=== PATIENT | male | born 1965 | race African-American/Black ===

== ENCOUNTER 2024-11-27 12:22 | Inpatient (IN) | payer BC, MEDICAID, OTHER ==
[2024-11-27] MEDS: EPINEPHrine 1 MG/ML SDV ONE (13:08)
[2024-11-27] MEDS: methylPREDNISolone Sodium Succinate 125 MG/2 ML SDV IVPUSH ONE (13:08)
[2024-11-27] MEDS: diphenhydrAMINE 50 MG/ML SDV IVPUSH ONE (13:09)
[2024-11-27] MEDS: Famotidine 20 MG/2 ML SDV IVPUSH ONE (13:11)
[2024-11-27] MEDS: Sodium Chloride 0.9% 10 ML Syringe FLUSH ONE (13:21)
[2024-11-27] MEDS: Iopamidol 755 Mg/ML 100 ML Bottle IVPUSH ONE (13:21)
[2024-11-27] MEDS: EPINEPHrine 0.3 MG/0.3 ML Pen Autoinjector IM ONE (13:24)
[2024-11-27] MEDS: Sodium Chloride 0.9% 1,000 ML IV SCH (13:39)
[2024-11-27] MEDS: Piperacillin/Tazobactam 4.5 GM in Sodium Chloride 0.9% 100 ML IV ONE (14:28)
[2024-11-27 14:31] LABS: BASOPHILS PERCENT AUTO 0.2 % (0.0-1.0); EOSINOPHILS ABSOLUTE AUTO 0.1 K/mm3 (0.0-0.4); EOSINOPHILS PERCENT AUTO 1.1 % (0.0-6.0); HEMATOCRIT 42.1 % (42.0-52.0); IMMATURE GRAN ABSOLUTE AUTO 0.03 K/mm3 (0.00-0.05); IMMATURE GRAN PERCENT AUTO 0.3 % (0.0-0.4); LYMPHOCYTES ABSOLUTE AUTO 1.3 K/mm3 (1.0-4.8); LYMPHOCYTES PERCENT AUTO 12.8 % (24.0-44.0); MEAN CORPUSCULAR HGB CONC 33.3 g/dl (32.0-36.0); MEAN CORPUSCULAR VOLUME 90.3 fl (83.0-99.0); MEAN PLATELET VOLUME 12.5 fl (9.4-12.4); MONOCYTES ABSOLUTE AUTO 0.9 K/mm3 (0.0-0.8); MONOCYTES PERCENT AUTO 8.4 % (0.0-8.0); NEUTROPHILS ABSOLUTE AUTO 7.9 K/mm3 (1.8-7.7); NEUTROPHILS PERCENT AUTO 77.2 % (41.0-71.0); PLATELET COUNT,PLT 145 K/mm3 (150-400); RED BLOOD CELL COUNT 4.66 M/mm3 (4.52-5.90); WHITE BLOOD CELL COUNT,WBC 10.25 K/mm3 (3.9-11.3)
[2024-11-27] MEDS ORDERED: Sulfamethoxazole/Trimethoprim 800-160 MG Tab PO ONE (14:37)
[2024-11-27 14:40] LABS: A/G RATIO 0.8 (1-2); ALBUMIN 3.4 g/dl (3.4-5.0); ANION GAP 12.8 (5-15); BILIRUBIN TOTAL 0.7 mg/dL (0.2-1.0); BUN/CREATININE RATIO 8.2 (14-18); CALCIUM 9.1 mg/dL (8.5-10.1); CREATININE 1.1 mg/dL (0.7-1.3); EST CRCL DRUG DOSING (CG) 73.2 mL/min; POTASSIUM,K 3.8 mEq/L (3.5-5.1); PROTEIN TOTAL,TP 7.7 g/dl (6.4-8.2)
[2024-11-27] MEDS ORDERED: LORazepam 1 MG Tab PO PRN (16:45)
[2024-11-27] MEDS ORDERED: hydrALAZINE 20 MG/ML SDV IVPUSH PRN (16:56)
[2024-11-27] MEDS ORDERED: Labetalol 100 MG/20 ML MDV IVPUSH PRN (16:56)
[2024-11-27] MEDS ORDERED: Acetaminophen/HYDROcodone 325-5 MG Tab PO PRN (17:11)
[2024-11-27] MEDS ORDERED: Sennosides/Docusate Sodium 50-8.6 MG Tab PO PRN (17:11)
[2024-11-27] MEDS ORDERED: Ondansetron 4 MG Tab.DIS PO PRN (17:11)
[2024-11-27] MEDS: Ampicillin/Sulbactam Na 3 GM in Sodium Chloride 0.9% 100 ML IV SCH (17:39)
[2024-11-27] MEDS: Albuterol/Ipratropium 3.0-0.5 MG/3 ML Neb Soln NEB ONE (18:21)
[2024-11-27 18:43] LABS: BARBITURATE SCREEN,URINE NEGATIVE (CUTOFF=200); BENZODIAZEPINES SCREEN,URINE NEGATIVE (CUTOFF=150); BUPRENORPHINE SCREEN,URINE NEGATIVE (CUTOFF=10); METHADONE SCREEN, URINE NEGATIVE (CUT0FF=200); METHAMPHETAMINES SCREEN, URINE NEGATIVE (CUTOFF=500); OXYCODONE SCREEN,URINE NEGATIVE (CUT0FF=100); THC SCREEN,URINE 20 NG/ML NEGATIVE (CUTOFF=50)
[2024-11-27 18:47] LABS: AMPHETAMINES SCREEN, URINE NEGATIVE (CUTOFF=500)
[2024-11-28 05:38] LABS: BASOPHILS PERCENT AUTO 0.1 % (0.0-1.0); HEMATOCRIT 38.5 % (42.0-52.0); HEMOGLOBIN 12.7 gm/dl (14.0-18.0); IMMATURE GRAN ABSOLUTE AUTO 0.04 K/mm3 (0.00-0.05); IMMATURE GRAN PERCENT AUTO 0.3 % (0.0-0.4); LYMPHOCYTES ABSOLUTE AUTO 1.1 K/mm3 (1.0-4.8); LYMPHOCYTES PERCENT AUTO 8.5 % (24.0-44.0); MEAN PLATELET VOLUME 12.1 fl (9.4-12.4); MONOCYTES ABSOLUTE AUTO 0.8 K/mm3 (0.0-0.8); MONOCYTES PERCENT AUTO 6.3 % (0.0-8.0); NEUTROPHILS ABSOLUTE AUTO 10.7 K/mm3 (1.8-7.7); NEUTROPHILS PERCENT AUTO 84.8 % (41.0-71.0); PLATELET COUNT,PLT 138 K/mm3 (150-400); RED BLOOD CELL COUNT 4.23 M/mm3 (4.52-5.90); WHITE BLOOD CELL COUNT,WBC 12.63 K/mm3 (3.9-11.3)
[2024-11-28 06:02] LABS: A/G RATIO 0.7 (1-2); ALBUMIN 2.8 g/dl (3.4-5.0); BILIRUBIN TOTAL 0.3 mg/dL (0.2-1.0); BUN/CREATININE RATIO 11.8 (14-18); C-REACTIVE PROTEIN 6.78 mg/dL (<0.30); CREATININE 1.1 mg/dL (0.7-1.3); EST CRCL DRUG DOSING (CG) 70.82 mL/min; MAGNESIUM 2.1 mg/dL (1.8-2.4); PROTEIN TOTAL,TP 6.9 g/dl (6.4-8.2)
[2024-11-28 06:40] LABS: HEMOGLOBIN A1C 6.4 %
[2024-11-28] MEDS: Enoxaparin 40 MG/0.4 ML Syringe SUBCUT SCH (09:08)
[2024-11-28] MEDS ORDERED: 50% Dextrose in Water 50 ML Syringe IVPUSH PRN (15:13)
[2024-11-28] MEDS: Insulin Lispro 100 Unit/ML 3 ML KwikPen SUBCUT SCH (17:31)
[2024-11-28] MEDS: Melatonin 3 MG Tab PO PRN (20:48)
[2024-11-28] MEDS: Acetaminophen 325 MG Tab PO PRN (23:01)
[2024-11-29 05:36] LABS: BASOPHILS PERCENT AUTO 0.2 % (0.0-1.0); EOSINOPHILS ABSOLUTE AUTO 0.3 K/mm3 (0.0-0.4); EOSINOPHILS PERCENT AUTO 2.9 % (0.0-6.0); HEMATOCRIT 37.9 % (42.0-52.0); HEMOGLOBIN 12.4 gm/dl (14.0-18.0); IMMATURE GRAN ABSOLUTE AUTO 0.03 K/mm3 (0.00-0.05); IMMATURE GRAN PERCENT AUTO 0.3 % (0.0-0.4); LYMPHOCYTES ABSOLUTE AUTO 3.2 K/mm3 (1.0-4.8); LYMPHOCYTES PERCENT AUTO 29.6 % (24.0-44.0); MEAN CORPUSCULAR HEMOGLOBIN 30.1 pg (28.0-32.0); MEAN CORPUSCULAR HGB CONC 32.7 g/dl (32.0-36.0); MEAN PLATELET VOLUME 12.1 fl (9.4-12.4); MONOCYTES ABSOLUTE AUTO 0.7 K/mm3 (0.0-0.8); MONOCYTES PERCENT AUTO 6.5 % (0.0-8.0); NEUTROPHILS ABSOLUTE AUTO 6.4 K/mm3 (1.8-7.7); NEUTROPHILS PERCENT AUTO 60.5 % (41.0-71.0); PLATELET COUNT,PLT 146 K/mm3 (150-400); RED BLOOD CELL COUNT 4.12 M/mm3 (4.52-5.90); WHITE BLOOD CELL COUNT,WBC 10.64 K/mm3 (3.9-11.3)
[2024-11-29 06:29] LABS: ANION GAP 9.9 (5-15); C-REACTIVE PROTEIN 3.26 mg/dL (<0.30); CALCIUM 8.5 mg/dL (8.5-10.1); EST CRCL DRUG DOSING (CG) 77.9 mL/min; POTASSIUM,K 3.9 mEq/L (3.5-5.1)
== END 2024-11-29 08:48 | disposition left against medical advice (07) | DRG 159 ==
LOC: JD.ED 12:22 → JD.MS 14:58 → JD.ICU 14:59
PROVIDERS: ADMIT Student in an Organized Health Care Education/Training Program; ATTEND Student in an Organized Health Care Education/Training Program
DX: K04.7 Periapical abscess without sinus (principal); E86.0 Dehydration; R73.9 Hyperglycemia, unspecified; R73.03 Prediabetes; Z86.16 Personal history of COVID-19; Z90.49 Acquired absence of other specified parts of digestive tract; Z72.0 Tobacco use
CPT/HCPCS: 36415; 70487; 70487-26; 80048; 80053; 80306; 80307; 82947; 83036; 83735; 84100; 85025; 85652; 86140; 94760; 96361; 96365; 96366; 96367; 96372; 96375; 99222; 99232; 99238; 99285-25; A9270-GY; J0171; J0295; J1200; J1650; J2543; J2919; J7030; Q9967